=== PATIENT | female | born 1990 | race Caucasian/White ===

== ENCOUNTER 2016-11-20 00:15 | Inpatient (IN) | payer OTHER ==
[2016-11-20 01:00] VITALS: BMI 43.2
[2016-11-20] MEDS ORDERED: OXYTOCIN IN LR 500 ML IV ONE (04:20)
[2016-11-20] MEDS ORDERED: PUMP TUBING ONE (04:33)
[2016-11-20] MEDS ORDERED: LIDOCAINE 1% (PRES FREE) 30 ML VIAL ONE (04:33)
[2016-11-20] MEDS ORDERED: IV START KIT ONE (04:33)
[2016-11-20] MEDS ORDERED: MINERAL OIL 25 ML BOT ONE (04:33)
[2016-11-20] MEDS ORDERED: LIDOCAINE Viscous 2% 15 ML UDCUP ONE (04:33)
[2016-11-20] MEDS ORDERED: OXYTOCIN 10 UNITS/ML VIAL ONE (04:33)
[2016-11-20] MEDS ORDERED: LACTATED RINGERS 1,000 ML ONE (04:34)
[2016-11-20 05:41] LABS: HEMATOCRIT 38.5 % (37.0-47.0); HEMOGLOBIN 12.3 gm/l (12.0-16.0); MEAN CELL VOLUME 79.4 fl (81.0-99.0); MEAN CORPUSCULAR HEMOGLOBIN 25.4 pg (27.0-31.0); MEAN CORPUSCULAR HGB CONC 31.9 g/dl (33.0-37.0); RED CELL DISTRIBUTION WIDTH 16.2 % (11.5-14.5)
[2016-11-20] MEDS ORDERED: EPIDURAL PUMP SET ONE (06:47)
[2016-11-20] MEDS ORDERED: FENTANYL/ROPIVACAINE EPIDURAL 250 ML EP ONE (06:47)
[2016-11-20] MEDS: LACTATED RINGERS 1,000 ML IV PRN ×2 (07:02→07:44)
[2016-11-20] MEDS ORDERED: FENTANYL 100 MCG/2 ML VIAL ONE (07:08)
[2016-11-20] MEDS ORDERED: LIDOCAINE 2% (PRES FREE) 5 ML VIAL ONE (07:10)
[2016-11-20] MEDS ORDERED: EPIDURAL PROCEDURE TRAY ONE (07:10)
--- NOTE | 2016-11-20 07:21 | PDOC36 ---
Provider Note Subject: Progress Note Note: S: Pt was in jacuzzi, but began feeling a strong urge to push. She stated she could not do this any longer and wanted an epidural. O: FH category 1, regular strong contrx. VE cervix 7cm, not stretchy with pushing Membranes tense but intact Vertex at -2 station Imp: Pt having involuntary pushing but not ready as yet. She is a good candidate for epidural. Plan: IV fluid load Epidural narcotics.
--- NOTE | 2016-11-20 09:01 | PDOC36 ---
Provider Note Subject: Patient resting comfortably after epidural. VSS SVE: /-[address] Albarran @0700 FHT: 125/mod/+accels/-decels. FHT noted from admission [place] q2-6 A/P 26 yo @40.4 in labor *S/P Epidural *Expect .
--- NOTE | 2016-11-20 10:35 | PDOC36 ---
Provider Note Note: Pt complaining of increased pressure. VSS SVE: 10/100/0, with BBOW. FHT: 125/mod poppy/+accels/-decels [place]:q2-3 A/P: 26 yo @40.4, labor -s/p epidural -AROM, light meconium -Will let labor down. -Anticipate soon.
--- NOTE | 2016-11-20 11:32 | PCMDEL ---
Delivery Note - Labor Pushed (hr/min):: 10 min - Delivery Delivery (Date): 11/20/16 Delivery (Time): 11:31 Gender: Female Presentation: Cephalic Position: OA Umbilical Cord: 3 Vessel Delayed Cord Clamping:: < 1 min 1 Minute Total: 9 5 Minute Total: 9 Placenta:: intact EBL:: 150 Perineum:: intact
[2016-11-20] MEDS ORDERED: MEASLES,MUMPS&RUBELLA VACCINE 0.5 ML VIAL SUB-Q V ONE (11:39)
[2016-11-20] MEDS ORDERED: LANOLIN 50 APPLIC/7G TUBE TP PRN (11:42)
[2016-11-20] MEDS ORDERED: ACETAMINOPHEN 325 MG TABLET PO PRN (11:42)
[2016-11-20] MEDS ORDERED: BENZOCAINE/MENTHOL 60 APPLIC/BOT TP PRN (11:42)
[2016-11-20] MEDS: DOCUSATE SODIUM 100 MG CAPSULE PO PRN (22:01)
[2016-11-20] MEDS: IBUPROFEN 600 MG TABLET PO PRN (23:29)
[2016-11-21] MEDS: IBUPROFEN 600 MG TABLET PO PRN ×2 (06:19→15:53)
[2016-11-21 06:30] LABS: HEMATOCRIT 32.4 % (37.0-47.0); HEMOGLOBIN 10.3 gm/l (12.0-16.0)
--- NOTE | 2016-11-21 06:46 | PDOC44 ---
- Subjective Day: 1 (feels well, no complaints) Reports Flatus, Reports Pain Tolerable, Reports , Reports Lochia Light, Reports Tolerating Regular Diet, Denies Nausea, Denies Vomiting, Denies Fever - Objective Temp Pulse Resp BP Pulse Ox 97.6 F 79 18 122/58 11/21/16 02:37 11/21/16 02:37 11/21/16 02:37 11/21/16 02:37 Lab Results 11/21/16 06:25 Hgb 10.3 L D Hct 32.4 L Current Medications Generic Name Dose Route Start Last Admin Trade Name Freq PRN Reason Stop Dose Admin Acetaminophen 325 - 650 mg 11/20/16 11:42 Tylenol PO Q4H PRN Pain (Mild) Benzocaine/Menthol 1 applic 11/20/16 11:42 Dermoplast TP PRN PRN Patient Comfort Docusate Sodium 100 mg 11/20/16 21:43 11/20/16 22:01 Colace PO 100 mg DAILY PRN Administration Constipation Emollient Ointment 1 applic 11/20/16 11:42 Vur-L-Sccijn TP PRN PRN sore nipples Ibuprofen 600 mg 11/20/16 11:42 11/21/16 06:19 Motrin PO 600 mg Q6H PRN Administration Pain (Mild) Sodium Chloride 10 ml 11/20/16 11:42 Normal Saline 10ml Flush IV PRN PRN IV Flush Sodium Chloride 10 ml 11/20/16 17:00 Normal Saline 10ml Flush IV Q8HR [facility] Sodium Chloride 10 ml 11/20/16 11:45 Normal Saline 10ml Flush IV PRN PRN - Physical Exam General: Afebrile, No Acute Distress Psych/Mental Status: Mood/Affect Appropriate, Judgment/Insight Intact, Bonding Well Breast: Soft, Skin intact, Nipples Intact, No Tenderness, No Erythema, No Engorged Fundus: Firm, Midline, Below Umbilicus, Other (nontender) Genitourinary: Other (voiding without difficulty) Lochia: Light Extremities: No Tenderness - Problems:Assessment/Plan (1) Anemia, Status: Acute Disposition: Stable, Anticipate DC to Home
[2016-11-21] MEDS ORDERED: FERROUS SULFATE (65 Fe) 325 MG TABLET PO SCH (09:00)
[2016-11-21] MEDS: OXYCODONE/ACETAMINOPHEN 5/325 MG TABLET PO PRN ×2 (20:17→21:57)
[2016-11-22] MEDS: IBUPROFEN 600 MG TABLET PO PRN (05:03)
[2016-11-22] MEDS: OXYCODONE/ACETAMINOPHEN 5/325 MG TABLET PO PRN (05:03)
--- NOTE | 2016-11-22 11:09 | PDOC39B ---
Hospital Course: ADMIT DATE: 11/20/16 DISCHARGE DATE: 11/22/16 ADMISSION DIAGNOSES: intrauterine at 40.4 weeks, labor PROCEDURES: spontaneous vaginal delivery HISTORY OF PRESENT ILLNESS: 26 year old G4 T1 L1 at 40 weeks 4 days presenting with uterine contractions. HOSPITAL COURSE: The patient had an uneventful post course with exception of anemia. By day of discharge the patient is ambulating, eating, voiding, and passing flatus without difficulty. Pain is controlled and lochia is appropriate. She is [] - Physical Exam Vital Signs: Temp Pulse Resp BP Pulse Ox 97.6 F 65 16 120/76 11/22/16 03:30 11/22/16 03:30 11/22/16 03:30 11/22/16 03:30 General: Afebrile, No Acute Distress Psych/Mental Status: Mood/Affect Appropriate, Judgment/Insight Intact, Bonding Well Breast: Soft, Skin intact, Nipples Intact, No Tenderness, No Erythema, No Engorged Fundus: Firm, Midline, Below Umbilicus, Other (nontender) Genitourinary: Other (voiding without difficulty) Lochia: Light Extremities: No Tenderness - Discharge Diagnosis (1) Anemia, Status: Acute (2) Term delivered Status: Acute - Discharge Plan Condition: Stable Disposition: Home Additional Instructions: nothing in vagina x 6 weeks, analgesics as needed, take iron supplementation as prescribed. office visit 6 weeks Prescriptions: Ibuprofen [Motrin] 800 mg PO Q8H PRN #30 tablet PRN Reason: Pain FERROUS SULFATE (65 Fe) [IRON FERROUS SULFATE 325 MG TABLET (SHF)] 325 mg PO DAILY #30 tab Oxycodone HCl/Acetaminophen [PERCOCET 5/325 MG TABLET (SHF)] 1 - 2 tab PO Q4H PRN #14 tablet PRN Reason: Pain (Moderate)
[2016-11-22] MEDS ORDERED: FLU VACC 2016-17 (36MO-64Y)/PF 60 MCG/0.5 ML SYRINGE IM V ONE (11:23)
[2016-11-22] MEDS: DOCUSATE SODIUM 100 MG CAPSULE PO PRN (11:45)
[2016-11-22 11:51] VITALS: BP 127/61
== END 2016-11-22 13:13 | disposition home or self-care (01) | DRG 775 ==
LOC: FBCOUT 00:15 → FBC 00:15 → FBCOUT 04:10 → FBC 04:10
PROVIDERS: ADMIT Obstetrics & Gynecology; ATTEND Obstetrics & Gynecology
PROC: 10E0XZZ Delivery of Products of Conception, External Approach (ICD-10-PCS; principal; 2016-11-20)
DX: O90.81 Anemia of the puerperium (principal); D64.9 Anemia, unspecified; Z3A.40 40 weeks gestation of pregnancy; Z37.0 Single live birth; O09.43 Supervision of pregnancy with grand multiparity, third trimester

== ENCOUNTER 2016-12-12 16:01 | Emergency (ER) | payer OTHER | END 2016-12-12 18:15 | disposition home or self-care (01) | LOC: ED 16:01 | DX: K60.2 Anal fissure, unspecified (principal) ==